=== PATIENT | female | born 1975 | race Caucasian/White ===

== ENCOUNTER 2018-12-28 21:26 | Emergency (ER) | payer SELFPAY ==
[~2018-12-28] VITALS: Ht 160 cm; Wt 70.3 kg
[2018-12-28 21:46] VITALS: Ht 160 cm; Wt 70.3 kg
[2018-12-28 22:39] VITALS: BP 155/85
== END 2018-12-28 22:39 | disposition home or self-care (01) ==
LOC: ED 21:26
DX: S70.362A Insect bite (nonvenomous), left thigh, initial encounter (principal); W57.XXXA Bitten or stung by nonvenomous insect and other nonvenomous arthropods, initial encounter; Y93.89 Activity, other specified; Y92.89 Other specified places as the place of occurrence of the external cause; Y99.8 Other external cause status
CPT/HCPCS: J0696